=== PATIENT | female | born 1945 | race Caucasian/White ===

== ENCOUNTER → 2016-11-08 | Outpatient (CLI) | payer OTHER | LOC: FIMAGING 15:08 | DX: Z12.31 Encounter for screening mammogram for malignant neoplasm of breast (principal) | CPT/HCPCS: G0202 ==

== ENCOUNTER → 2016-11-13 | Outpatient (CLI) | payer OTHER | LOC: FIMAGING 12:17 | PROVIDERS: ATTEND Family Medicine | DX: R92.0 Mammographic microcalcification found on diagnostic imaging of breast (principal) | CPT/HCPCS: G0206 ==

== ENCOUNTER → 2017-01-05 | Outpatient (CLI) | payer OTHER | LOC: FIMAGING 13:27 | PROVIDERS: ATTEND Family Medicine | DX: M81.8 Other osteoporosis without current pathological fracture (principal) ==

== ENCOUNTER 2017-03-16 12:19 | Emergency (ER) | payer OTHER ==
[2017-03-16 12:26] VITALS: O2SAT 96
--- NOTE | 2017-03-16 13:03 | EDPHY ---
HPI/HX/ROS/PE/MDM Narrative: CHIEF COMPLAINT: Dizziness HPI: This patient is a 71 year old female complaining of severe dizziness onset this morning upon waking. She notes this sensation mostly when standing and walking, but here in the emergency department she is feeling dizzy while stationary as well. She feels as if she is spinning. She was evaluated several months ago for confusion and dizziness which was related to low sodium, but states her symptoms today are different and more severe. She endorses nausea related to her spinning sensation. She denies chest pain, shortness of breath, vomiting, or weakness or numbness in her arms or legs. She denies recent illness, falls, or injuries. REVIEW OF SYSTEMS: Aside from elements discussed in the HPI, a comprehensive 10-point review of systems was reviewed and is negative. PMH: Viral encephalitis, hypothyroid, discectomy, chronic neck pain (herniated disk), DDD, appendectomy SOCIAL HISTORY: Nonsmoker, no alcohol use. PHYSICAL EXAM: General:Patient is alert, in no acute distress. ENT: Small amount of horizontal nystagmus. ENT inspection normal. Neck: Normal inspection. Full range of motion. Respiratory:No respiratory distress. Breath sounds normal bilaterally. Cardiovascular: Regular rate and rhythm. Strong peripheral pulses. Normal cap refill. Abdomen:The abdomen is nontender to palpation. There are no peritoneal signs. There are normal bowel sounds. Back: Normal to inspection. No tenderness to palpation. Skin: Normal color. No rash. Warm and dry. Extremities: Normal appearance. Full range of motion. Neuro: Oriented x3. Normal motor function. Normal sensory function. Normal heel to humphrey, finger to nose. Dysdiadochokinesis. Portions of this note were transcribed by an ED scribe. I personally performed the history, physical exam, and medical decision making; and confirm the accuracy of the information in the transcribed note. ED Course: 71 year old female presenting with spinning dizziness onset this morning. Mild horizontal nystagmus on exam, neurologic exam is normal. Plan for EKG and labs including CBC, BMP, Troponin. Plan to administer 50mg PO Meclizine for symptom relief. The 12 lead EKG was interpreted by myself. See hard copy and/or "tracemaster" electronic copy for interpretation. Sinus rhythm, rate 66. EKG normal, labs unremarkable. 14:28 Reassessed patient. Plan to discharge home in good condition with prescription for Meclizine for continued symptom relief. Follow up and return precautions discussed. The patient is comfortable with this plan. MDM: This patient presents with signs and symptoms of peripheral vertigo. After treatment with meclizine, the patient is feeling much better and states her symptoms have largely resolved. She was able to walk to the bathroom with normal gait and with no assistance. I had an extensive discussion with her regarding the possibility of CVA, which in this case would likely be cerebellar in origin. I explained that I see no objective signs of this but offered an MRI nonetheless. She refuses, and would like to try conservative management at home. She promises to return to the ED for any worsening of condition. - Data Points Laboratory Results: Laboratory Results 03/16/17 13:10 03/16/17 13:10 03/16/17 03/16/17 13:10 13:10 WBC 5.35 10^3/uL 10^3/uL (3.80-9.50) RBC 4.28 10^6/uL 10^6/uL (4.18-5.33) Hgb 13.3 g/dL g/dL (12.6-16.3) Hct 39.4 % % (38.0-47.0) MCV 92.1 fL fL (81.5-99.8) MCH 31.1 pg pg (27.9-34.1) MCHC 33.8 g/dL g/dL (32.4-36.7) RDW 13.0 % % (11.5-15.2) Plt Count 311 10^3/uL 10^3/uL (150-400) MPV 9.8 fL fL (8.7-11.7) Neut % (Auto) 72.8 % % (39.3-74.2) Lymph % (Auto) 19.1 % % (15.0-45.0) [place] % (Auto) 6.7 % % (4.5-13.0) Eos % (Auto) 0.6 % % (0.6-7.6) Baso % (Auto) 0.4 % % (0.3-1.7) Nucleat RBC Rel Count 0.0 % % (0.0-0.2) Absolute Neuts (auto) 3.90 10^3/uL 10^3/uL (1.70-6.50) Absolute Lymphs (auto) 1.02 10^3/uL 10^3/uL (1.00-3.00) Absolute Monos (auto) 0.36 10^3/uL 10^3/uL (0.30-0.80) Absolute Eos (auto) 0.03 10^3/uL 10^3/uL (0.03-0.40) Absolute Basos (auto) 0.02 10^3/uL 10^3/uL (0.02-0.10) Absolute Nucleated RBC 0.00 10^3/uL 10^3/uL (0-0.01) Immature Gran % 0.4 % % (0.0-1.1) Immature Gran # 0.02 10^3/uL 10^3/uL (0.00-0.10) Sodium 136 mEq/L mEq/L (134-144) Potassium 4.1 mEq/L mEq/L (3.5-5.2) Chloride 104 mEq/L mEq/L (97-110) Carbon Dioxide 21 mEq/l L mEq/l (22-31) Anion Gap 11 mEq/L mEq/L (8-16) BUN 17 mg/dL mg/dL (7-23) Creatinine 0.7 mg/dL mg/dL (0.6-1.0) Estimated GFR > 60 Glucose 113 mg/dL H mg/dL (70-100) Calcium 9.7 mg/dL mg/dL (8.5-10.4) Total Bilirubin 0.5 mg/dL mg/dL (0.1-1.4) AST 30 IU/L IU/L (14-46) ALT 33 IU/L IU/L (9-52) Alkaline Phosphatase 62 IU/L IU/L (38-126) Troponin I < 0.012 ng/mL ng/mL (0-0.034) Total Protein 7.2 g/dL g/dL (6.3-8.2) Albumin 4.3 g/dL g/dL (3.5-5.0) Medications Given: Discontinued Medications Meclizine HCl (Meclizine Hcl) 50 mg PO EDNOW ONE Stop: 03/16/17 13:11 Last Admin: 03/16/17 13:16 Dose: 50 mg General Time Seen by Provider: 03/16/17 13:00 Initial Vital Signs: Initial Vital Signs Temperature (C) 36.6 C 03/16/17 12:20 Heart Rate 68 03/16/17 12:20 Respiratory Rate 18 03/16/17 12:20 Blood Pressure 148/78 H 03/16/17 12:20 O2 Sat (%) 96 03/16/17 12:20 O2 Delivery Mode Room Air Allergies/Adverse Reactions: gluten Allergy (Mild, Verified 03/16/17 12:20) Abdominal Pain Home Medications: Medication Instructions Recorded Levothyroxine [Synthroid 25 mcg 12.5 mcg PO DAILY06 07/03/16 (*)] Levothyroxine [Synthroid 25 mcg 25 mcg PO DAILY06 07/03/16 (*)] Meclizine HCl [Meclizine HCl 25 mg 25 - 50 mg PO BID PRN #14 tab 03/16/17 (RX,OTC)] Departure - Departure Disposition: Home, Routine, Self-Care Clinical Impression: Peripheral vertigo Qualifiers: Laterality: unspecified laterality Qualified Code(s): H81.399 - Other peripheral vertigo, unspecified ear Condition: Good Instructions: Vertigo (ED) Additional Instructions: 1. Use meclizine as prescribed. This medication is also available over the counter. 2. Drink plenty of fluids. 3. Return to the emergency department immediately for headache, numbness, weakness, severe vertigo, neck pain, inability to tolerate fluids by mouth or other worsening of condition. 4. If symptoms persist for more than 48 hours, followup with your primary care physician and/or a neurologist for further evaluation. Referrals: Maddison Byrnes MD [Primary Care Provider] - As per Instructions Prescriptions: Meclizine HCl [Meclizine HCl 25 mg (RX,OTC)] 25 - 50 mg PO BID PRN #14 tab PRN Reason: vertigo Report Scribed for: Rafita Andrea Report Scribed by: Diane Ho Date of Report: 03/16/17 Time of Report: 13:02
--- NOTE | 2017-03-16 13:07 | CPEKG ---
Heart Rate: 66 RR Interval: 909 P-R Interval: 168 QRSD Interval: 84 QT Interval: 400 QTC Interval: 420 P [place]: 58 QRS [place]: 11 T Wave [place]: 40 EKG Severity - BORDERLINE ECG - EKG Impression: SINUS RHYTHM EKG Impression: BORDERLINE R WAVE PROGRESSION, ANTERIOR LEADS Electronically Signed By: Clive Lynn 18-Mar-2017 14:36:01
[2017-03-16] MEDS ORDERED: MECLIZINE HCL 25 MG TAB PO ONE (13:10)
[2017-03-16 13:55] LABS: % IMMATURE GRANULYOCYTES 0.4 % (0.0-1.1); ABSOLUTE IMMATURE GRANULOCYTES 0.02 10^3/uL (0.00-0.10); ADD DIFF? NO; ADD MORPH? NO; ADD SCAN? NO; ATYPICAL LYMPHOCYTE FLAG 20 (0-99); FRAGMENT RBC FLAG 0 (0-99); HEMATOCRIT 39.4 % (38.0-47.0); HEMOGLOBIN 13.3 g/dL (12.6-16.3); LEFT SHIFT FLG 0 (0-99); LIPEMIA HEMOLYSIS FLAG 90 (0-99); MEAN CELL HEMOGLOBIN 31.1 pg (27.9-34.1); MEAN CELL HEMOGLOBIN CONCENTR. 33.8 g/dL (32.4-36.7); MEAN CELL VOLUME 92.1 fL (81.5-99.8); MEAN PLATELET VOLUME 9.8 fL (8.7-11.7); PLATELET CLUMPS FLAG 0 (0-99); PLATELET COUNT 311 10^3/uL (150-400); RED BLOOD CELL COUNT 4.28 10^6/uL (4.18-5.33)
[2017-03-16 14:01] LABS: ALANINE AMINOTRANSFERASE 33 IU/L (9-52); ALBUMIN 4.3 g/dL (3.5-5.0); ALKALINE PHOSPHATASE 62 IU/L (38-126); ANION GAP 11 mEq/L (8-16); ASPARTATE AMINOTRANSFERASE 30 IU/L (14-46); BILIRUBIN,TOTAL 0.5 mg/dL (0.1-1.4); CALCIUM 9.7 mg/dL (8.5-10.4); CARBON DIOXIDE 21 mEq/l (22-31); CHLORIDE 104 mEq/L (97-110); CREATININE 0.7 mg/dL (0.6-1.0); GLOMERULAR FILTRATION RATE > 60; GLUCOSE 113 mg/dL (70-100); POTASSIUM 4.1 mEq/L (3.5-5.2); SODIUM 136 mEq/L (134-144); TOTAL PROTEIN 7.2 g/dL (6.3-8.2)
[2017-03-16 14:12] LABS: TROPONIN I < 0.012 ng/mL (0-0.034)
[2017-03-16 15:01] VITALS: BP 142/70; PULSE 63; RESP 1694; TEMP 98.1
== END 2017-03-16 15:05 | disposition home or self-care (01) ==
DX: H81.399 Other peripheral vertigo, unspecified ear (principal)

== ENCOUNTER → 2017-05-29 | Outpatient (CLI) | payer OTHER | LOC: FIMAGING 08:49 | PROVIDERS: ATTEND Family Medicine | DX: R92.0 Mammographic microcalcification found on diagnostic imaging of breast (principal) | CPT/HCPCS: G0206 ==

== ENCOUNTER → 2017-12-28 | Outpatient (CLI) | payer OTHER | LOC: FIMAGING 12:08 | PROVIDERS: ATTEND Family Medicine | DX: R92.8 Other abnormal and inconclusive findings on diagnostic imaging of breast (principal) ==